=== PATIENT | male | born 1965 | race Caucasian/White ===

== ENCOUNTER 2022-05-05 19:03 | Emergency (ER) | payer OTHER, SELFPAY ==
[2022-05-05 19:07] VITALS: BP 121/80; PULSE 131; RESP 18; TEMP 36.8; O2SAT 94
--- NOTE | 2022-05-05 21:02 | PC.NURSE ---
Called once in triage, no answer.
--- NOTE | 2022-05-05 22:00 | PC.NURSE ---
Second call in triage, no answer.
== END 2022-05-05 22:25 | disposition left against medical advice (07) ==
LOC: ANHED 22:15
DX: R53.83 Other fatigue (principal)
CPT/HCPCS: 99199

== ENCOUNTER 2022-10-08 01:48 | Emergency (ER) | payer OTHER, SELFPAY ==
[2022-10-08] VITALS (31 sets, daily range): BP systolic 101–125; BP diastolic 64–90; PULSE 100–123; RESP 12–30; TEMP 36.5; O2SAT 84–100
--- NOTE | ~2022-10-08 | CT_ITS ---
EXAMINATION: CT brain wo con INDICATION: Head injury COMPARISON: None TECHNIQUE: Standard unenhanced head CT. The dose-length product (DLP) was 605.33 mGy-cm. The mA was a djusted according to patient size. Iterative reconstruction technique was employed. FINDINGS: There is no intracranial hemorrhage, acute infarction, or abnormal mass lesion. The ventric les are normal. There is no abnormal mass effect or midline shift. The jones-white matter differentiat ion is normal. The basal cisterns are patent. Intracranial calcified cerebral atherosclerosis is note d. The orbits are normal. There is mild mucosal thickening of the paranasal sinuses. IMPRESSION: 1. No acute intracranial abnormality. Reviewed, dictated and finalized at location A. WRESTLER
--- NOTE | ~2022-10-08 | XR_ITS ---
EXAMINATION: XR shoulder RT min 2V INDICATION: Right shoulder pain TECHNIQUE: Three views of the right shoulder are submitted. COMPARISON: None FINDINGS: Normal alignment. No acute fracture. There is moderate osteoarthritis of the acromioclavicu lar joint and mild osteoarthritis of the glenohumeral joint. There are healed right rib fractures. Sc lerosis at the superolateral margin of the humeral head could reflect prior Hill-Sachs fracture. Soft tissues are unremarkable. IMPRESSION: 1. No acute osseous abnormality. Reviewed, dictated and finalized at location A. OYMENT TECHNICIAN
--- NOTE | 2022-10-08 02:15 | ED.FALL ---
HPI - Fall General Chief Complaint: Fall Stated Complaint: GLF head and right shoulder pain Time Seen by Provider: 10/08/22 01:57 History of Present Illness HPI Narrative: 57-year-old male presenting to the emergency department for evaluation after having a fall from a stool. Patient states this evening he was standing on a stool trying to reach a food item from the cupboard when he fell and struck his head and injured his right shoulder. Patient suspects that his right shoulder was temporarily dislocated, he states this happens relatively often. Patient hit his head but had no loss of consciousness. Patient does have COPD as well as being on oxygen at nighttime. Patient denies any current worsening shortness of breath. Patient states for the last 2 months he has had approximately 18 pounds of unintentional weight loss and does have lower extremity pain that is worsened with ambulation over the last few months. Related Data Allergies Allergy/AdvReac Type Severity Reaction Status Date / Time No Known Allergies Allergy Verified 10/08/22 01:58 Review of Systems Review of Systems: CONSTITUTIONAL: Denies fever, chills, or sweats. EYES: Denies visual changes, redness, or discharge. ENT: Denies rhinorrhea, congestion, sore throat, or otalgia. CARDIOVASCULAR: Denies chest pain, palpitations, or edema. RESPIRATORY: Denies cough or dyspnea. GASTROINTESTINAL: Denies abdominal pain, nausea, vomiting, or diarrhea. GENITOURINARY: Denies dysuria or hematuria. SKIN: Denies rash or itching. MUSCULOSKELETAL: See HPI NEUROLOGIC: Denies headache, numbness, or weakness. Exam Narrative: APPEARANCE: Well appearing, no pain, no distress, well-nourished. HEAD: normocephalic, atraumatic. EYES: PERRLA/EOMI, conjunctivae clear. NOSE: Normal no drainage NECK: Supple. No adenopathy, no masses. RESPIRATORY: Airway patent, respirations nonlabored. Clear to auscultation bilaterally, no rales, rhonchi, wheezing. CARDIOVASCULAR: Regular rate and rhythm without murmurs rubs or gallops. ABDOMINAL: Soft, nontender, nondistended, normal bowel sounds MUSCULOSKELETAL: Moves all extremities. Strength/ROM intact, No edema, No calf tenderness. NEURO: Alert. Cranial nerves II through XII intact. SKIN: Warm, dry. Normal Color Course Course Emergency Course: Head CT was negative for acute intracranial abnormality. Shoulder x-ray showed no acute fracture or dislocation. Patient was afebrile with leukocytosis of 10.3. Patient's hemoglobin was stable. Patient's potassium is 2.9 this was replaced orally. Patient was encouraged [facility] patient was also provided medical follow-up with Dr. Helton Vital Signs Vital signs: Vital Signs Temperature 97.7 F 10/08/22 01:47 Pulse Rate 123 H 10/08/22 01:47 Respiratory Rate 18 10/08/22 01:47 Blood Pressure 125/86 10/08/22 01:47 Pulse Oximetry 85 L 10/08/22 01:47 Oxygen Delivery Room Air 10/08/22 01:47 Temperature 97.7 F 10/08/22 01:47 Pulse Rate 103 H 10/08/22 04:15 Respiratory Rate 16 10/08/22 06:00 Blood Pressure 107/64 10/08/22 05:46 Pulse Oximetry 96 10/08/22 06:15 Oxygen Delivery Nasal Cannula 10/08/22 03:10 Oxygen Flow Rate 2 10/08/22 03:10 MDM - Fall Lab Data Attestation: I reviewed the patient's lab results. Result diagrams: 10/08/22 02:23 10/08/22 02:23 Labs: Lab Results 10/08/22 10/08/22 Range/Units 02:23 02:23 WBC 10.3 H (4.5-10.0) K/mm3 RBC 3.79 L (4.6-6.20) M/mm3 Hgb 13.3 L (14.0-18.0) g/dL Hct 37.8 L (42.0-52.0) % MCV 99.7 (80-100) fl MCH 35.1 H (26-34) pg MCHC 35.2 (32-36) g/dl RDW 14.6 H (11.5-14.5) % Plt Count 237 (150-375) k/mm3 MPV 8.8 (7.4-10.4) fl Immature Gran % (Auto) 0.3 (0-0.5) % Neut % (Auto) 81.0 H (45.5-73.1) % Lymph % (Auto) 11.8 L (18.3-44.2) % [place] % (Auto) 6.0 (2.6-8.5) % Eos % (Auto) 0.2 (0-4.4) % Bas
[2022-10-08 02:31] LABS: Basophils Absolute Auto 0.1 K/mm3 (0.0-0.1); Basophils Percent Auto 0.7 % (0.2-1.2); Eosinophils Percent Auto 0.2 % (0-4.4); Hematocrit 37.8 % (42.0-52.0); Hemoglobin 13.3 g/dL (14.0-18.0); Immature Granulocyte Absolute 0.03 K/mm3 (0.00-0.031); Immature Granulocyte Percent A 0.3 % (0-0.5); Lymphocytes Absolute Auto 1.22 K/mm3 (0.9-3.2); Lymphocytes Percent Auto 11.8 % (18.3-44.2); Mean Corpuscular HGB Conc 35.2 g/dl (32-36); Mean Corpuscular Hemoglobin 35.1 pg (26-34); Mean Corpuscular Volume 99.7 fl (80-100); Mean Platelet Volume 8.8 fl (7.4-10.4); Monocytes Absolute Auto 0.6 K/mm3 (0.1-0.6); Neutrophils Absolute Auto 8.4 K/mm3 (1.3-6.7); Platelet Count Result 237 k/mm3 (150-375); Red Blood Count 3.79 M/mm3 (4.6-6.20); Red Cell Distribution Width 14.6 % (11.5-14.5); White Blood Count 10.3 K/mm3 (4.5-10.0)
[2022-10-08 02:41] LABS: Alanine Aminotransferase 29 U/L (6-50); Albumin Level 3.6 g/dL (3.5-5.1); Alkaline Phosphatase 210 U/L (38-126); Anion Gap 20 mmol/L (8-16); Aspartate Amino Transferase 64 U/L (17-59); Bilirubin,Total 1.1 mg/dL (0.2-1.3); Blood Urea Nitrogen 3 mg/dL (9-20); Calcium 7.9 mg/dL (8.4-10.2); Carbon Dioxide 28 mmol/L (22-30); Chloride 94 mmol/L (98-107); Creatine Kinase 40 U/L (55-170); Estimated Glomerular Filt Rate > 60; Glucose 106 mg/dL (65-110); Potassium 2.9 mmol/L (3.4-5.0); Sodium 142 mmol/L (137-145)
--- NOTE | 2022-10-08 03:11 | PC.NURSE ---
Patient O2 dropped down to 82% on RA. Placed patient on 2L via NC which is patients normal PM O2 setting.
--- NOTE | 2022-10-08 03:21 | PC.NURSE ---
Patient taken to CT via stretcher at this time..
[2022-10-08] MEDS: POTASSIUM CHLORIDE 20 MEQ PACKET (FOR LIQUID) 40 MEQ PO (06:21)
[2022-10-08] MEDS: HYDROcodone/acetaminophen (*CRX) 5-325 MG TABLET 1 TAB PO (06:30)
== END 2022-10-08 06:40 | disposition home or self-care (01) ==
PROVIDERS: Emergency Provider Emergency Medicine
DX: S09.90XA Unspecified injury of head, initial encounter (principal); S49.91XA Unspecified injury of right shoulder and upper arm, initial encounter; M79.605 Pain in left leg; M79.604 Pain in right leg; J44.9 Chronic obstructive pulmonary disease, unspecified; Z99.81 Dependence on supplemental oxygen; W08.XXXA Fall from other furniture, initial encounter
CPT/HCPCS: 36415; 70450; 73030; 80053; 82550; 85025; 99284; A9270

== ENCOUNTER 2022-10-13 07:44 | Emergency (ER) | payer OTHER, SELFPAY ==
[2022-10-13] VITALS (29 sets, daily range): BP systolic 67–120; BP diastolic 47–82; PULSE 102–154; RESP 14–25; O2SAT 65–99
--- NOTE | ~2022-10-13 | CT_ITS ---
EXAMINATION: CT brain wo con DATE: 10/13/2022 08:29 INDICATION: Head injury. TECHNIQUE: Computed tomography (CT) of the head was performed without intravenous contrast. The mA wa s adjusted according to patient size. Iterative reconstruction technique was employed. The dose-lengt h product was 605.33 mGy-cm. COMPARISON: Head CT 10/08/2022 FINDINGS: There is no intracranial hemorrhage, acute infarction, or abnormal intracranial mass lesion . The ventricles are normal in size. The orbits are normal. There is mild mucosal thickening in the p aranasal sinuses. The mastoid air cells are normal. There is a right lateral scalp laceration. IMPRESSION: 1. Normal brain. Reviewed, dictated and finalized at location A. LFISH SHUCKER IMPRESSION: 1. Normal brain.
--- NOTE | ~2022-10-13 | CT_ITS ---
EXAMINATION: CT cervical spine wo con DATE: 10/13/2022 08:30 INDICATION: Head injury. TECHNIQUE: Computed tomography (CT) of the cervical spine was performed without intravenous contrast. Automated exposure control and iterative reconstruction technique were employed. The dose-length pro duct was 185.98 mGy-cm. COMPARISON: None FINDINGS: There is mild emphysema. There is kyphosis of cervical spine. Vertebral body heights are no rmal. There is severely decreased disc height at C3-C4, C4-C5, and C6-C7 and mildly decreased disc he ight at C5-C6. The following disc levels are specifically discussed: C2-C3: There is mild bilateral uncovertebral joint osteoarthritis. There is severe right and mild lef t facet joint osteoarthritis. There is mild right neural foraminal stenosis. There is mild central ca nal stenosis. C3-C4: There is severe right and moderate left uncovertebral joint osteoarthritis. There is severe ri ght and mild left facet joint osteoarthritis. There is moderate right and mild left neural foraminal stenosis. There is mild central canal stenosis. C4-C5: There is severe bilateral uncovertebral joint osteoarthritis. There is moderate bilateral face t joint osteoarthritis. There is mild bilateral neural foraminal stenosis. There is mild central rula l stenosis. C5-C6: There is moderate right and mild left uncovertebral joint osteoarthritis. There is severe bila teral facet joint osteoarthritis. There is mild bilateral neural foraminal stenosis. There is mild ce ntral canal stenosis. C6-C7: There is severe bilateral uncovertebral joint osteoarthritis. There is mild right and moderate left facet joint osteoarthritis. There is mild right and moderate left neural foraminal stenosis. Th ere is mild central canal stenosis. C7-T1: There is no uncovertebral joint osteoarthritis. There is moderate bilateral facet joint osteoa rthritis. There is mild bilateral neural foraminal stenosis. There is no central canal stenosis. IMPRESSION: 1. No fracture. 2. Severe cervical spondylosis. Reviewed, dictated and finalized at location A. DEODORIZER SERVICER
--- NOTE | 2022-10-13 08:01 | ECG_ITS ---
Measurements Intervals [place] Rate: 127 P: 77 [place]: 121 QRS: -44 QRSD: 84 T: 72 QT: 340 QTc: 494 Interpretive Statements SINUS TACHYCARDIA DELAYED PRECORDIAL R/S TRANSITION LOW QRS VOLTAGE IN LIMB LEADS INFERIOR INFARCT, AGE INDETERMINATE BORDERLINE ST-T WAVE ABNORMALITY- HIGH LATERAL LEADS ABNORMAL ECG NO PREVIOUS ECG AVAILABLE FOR COMPARISON Electronically Signed On 10-13-2022 12:25:45 HOME [employer]ATION SERVICE CLEANER by Nitesh Plata D.O.
--- NOTE | 2022-10-13 08:01 | ED.GENADULT ---
HPI - General Adult General Chief complaint: Head Injury Stated complaint: GLF with head lac Time Seen by Provider: 10/13/22 07:56 History of Present Illness HPI narrative: 57-year-old male presenting to the emergency department for evaluation after having a fall and a subsequent head injury. Patient does admit to drinking alcohol yesterday. Patient is unsure of what caused the fall. Patient is unsure if he had loss of consciousness. EMS was called and dressing was applied. Bleeding was controlled upon arrival to the emergency department. Patient reports he did have a new granddaughter born and reports that he was drinking to celebrate. Related Data Allergies Allergy/AdvReac Type Severity Reaction Status Date / Time No Known Allergies Allergy Verified 10/08/22 01:58 Review of Systems Review of Systems: CONSTITUTIONAL: Denies fever, chills, or sweats. EYES: Denies visual changes, redness, or discharge. ENT: Denies rhinorrhea, congestion, sore throat, or otalgia. CARDIOVASCULAR: Denies chest pain, palpitations, or edema. RESPIRATORY: Denies cough or dyspnea. GASTROINTESTINAL: Denies abdominal pain, nausea, vomiting, or diarrhea. GENITOURINARY: Denies dysuria or hematuria. SKIN: Head injury, laceration, see HPI MUSCULOSKELETAL: Denies back pain, joint pain, or myalgia. NEUROLOGIC: Denies headache, numbness, or weakness. Exam Narrative: APPEARANCE: Well appearing, no pain, no distress, well-nourished. HEAD: normocephalic, scalp laceration. EYES: PERRLA/EOMI, conjunctivae clear. NOSE: Normal no drainage EARS:TMS clear with good light reflex. THROAT: Pharynx clear, no exudate. NECK: Supple. No adenopathy, no masses. RESPIRATORY: Airway patent, respirations nonlabored. Clear to auscultation bilaterally, no rales, rhonchi, wheezing. CARDIOVASCULAR: Regular rate and rhythm without murmurs rubs or gallops. ABDOMINAL: Soft, nontender, nondistended, normal bowel sounds MUSCULOSKELETAL: Moves all extremities. Strength/ROM intact, No edema, No calf tenderness. NEURO: Alert. Cranial nerves II through XII intact. Grossly intact SKIN: Scalp laceration Course Course Emergency Course: Patient declined admission for his hypokalemia. Patient potassium was replaced and rechecked. Patient's repeat potassium was 3.7. Patient blood pressure improved with rehydration. Patient was able to ambulate in the emergency department without issue. Patient denies any complaints at this time. Patient was encouraged of close follow-up with his primary care physician. Vital Signs Vital signs: Vital Signs Pulse Rate 154 H 10/13/22 07:48 Respiratory Rate 24 H 10/13/22 07:48 Oxygen Delivery Room Air 10/13/22 07:48 Pulse Rate 102 H 10/13/22 14:45 Respiratory Rate 16 10/13/22 14:45 Blood Pressure 109/47 L 10/13/22 14:45 Pulse Oximetry 99 10/13/22 14:45 Oxygen Delivery Room Air 10/13/22 07:48 Procedures Laceration Laceration 1: Site: scalp Side (If applicable): right Size (cm): 3 Description: linear Depth: simple, single layer Local Anesthetic: lidocaine 1% Amount of anesthesia used (mL): 5 Pre-repair: wound explored, irrigated and irrigated extensively ====== Skin Level ====== Skin layer closed with: nylon Size (cm): 3-0 Number of sutures: 5 Technique: simple, interrupted and other (4 simple and 1 figure 8) ====== Subcutaneous Layer ====== ====== Muscle Layer ====== ====== Tendon Layer ====== Medical Decision Making Vital Signs Vital Signs: Vital Signs Pulse Rate 154 H 10/13/22 07:48 Respiratory Rate 24 H 10/13/22 07:48 Oxygen Delivery Room Air 10/13/22 07:48 Pulse Rate 102 H 10/13/22 14:45 Respiratory Rate 16 10/13/22 14:45 Blood Pressure 109/47 L 10/13/22 14:45 Pulse Oximetry 99 10/13/22 14:45 Oxygen Delivery Room Air 10/13/22 07:48 Lab Data Lab results reviewed: Yes Saleem alan
[2022-10-13] MEDS: SODIUM CHLORIDE 0.9% IV 1,000 ML 999 ML IV CONT (08:05)
[2022-10-13 08:41] LABS: Basophils Absolute Auto 0.1 K/mm3 (0.0-0.1); Basophils Percent Auto 0.8 % (0.2-1.2); Eosinophils Absolute Auto 0.1 K/mm3 (0-0.3); Eosinophils Percent Auto 1.5 % (0-4.4); Hematocrit 34.5 % (42.0-52.0); Hemoglobin 11.5 g/dL (14.0-18.0); Immature Granulocyte Absolute 0.04 K/mm3 (0.00-0.031); Immature Granulocyte Percent A 0.4 % (0-0.5); Lymphocytes Absolute Auto 1.64 K/mm3 (0.9-3.2); Lymphocytes Percent Auto 17.7 % (18.3-44.2); Mean Corpuscular HGB Conc 33.3 g/dl (32-36); Mean Corpuscular Hemoglobin 34.8 pg (26-34); Mean Corpuscular Volume 104.5 fl (80-100); Mean Platelet Volume 9.4 fl (7.4-10.4); Monocytes Absolute Auto 0.6 K/mm3 (0.1-0.6); Monocytes Percent Auto 6.8 % (2.6-8.5); Neutrophils Absolute Auto 6.8 K/mm3 (1.3-6.7); Neutrophils Percent Auto 72.8 % (45.5-73.1); Platelet Count Result 132 k/mm3 (150-375); Red Cell Distribution Width 14.6 % (11.5-14.5); White Blood Count 9.3 K/mm3 (4.5-10.0)
[2022-10-13 09:20] LABS: Alanine Aminotransferase 56 U/L (6-50); Albumin Level 3.1 g/dL (3.5-5.1); Alkaline Phosphatase 171 U/L (38-126); Anion Gap 17 mmol/L (8-16); Aspartate Amino Transferase 275 U/L (17-59); Bilirubin,Total 1.1 mg/dL (0.2-1.3); Blood Urea Nitrogen 4 mg/dL (9-20); Calcium 7.3 mg/dL (8.4-10.2); Carbon Dioxide 26 mmol/L (22-30); Chloride 99 mmol/L (98-107); Estimated CRCL calculation 94 ml/min; Estimated Glomerular Filt Rate > 60; Glucose 153 mg/dL (65-110); Potassium 2.4 mmol/L (3.4-5.0); Sodium 142 mmol/L (137-145)
[2022-10-13] MEDS: POTASSIUM CHLORIDE 20 MEQ PACKET (FOR LIQUID) 40 MEQ PO (10:30)
[2022-10-13] MEDS: KCL 20 MEQ/SW 100 ML 100 ML 50 MEQ IVPB (10:30)
--- NOTE | 2022-10-13 10:30 | PC.NURSE ---
iv line reiniated. ns and kcl hung and infusing. pts family at bedside. provided with warm blankets for comfort.
[2022-10-13 10:31] LABS: Ethanol 265 mg/dL (<10)
[2022-10-13 14:23] LABS: Anion Gap 3 mmol/L (8-16); Blood Urea Nitrogen 4 mg/dL (9-20); Calcium 6.9 mg/dL (8.4-10.2); Carbon Dioxide 29 mmol/L (22-30); Chloride 101 mmol/L (98-107); Estimated CRCL calculation 135 ml/min; Estimated Glomerular Filt Rate > 60; Glucose 103 mg/dL (65-110); Potassium 3.7 mmol/L (3.4-5.0); Sodium 133 mmol/L (137-145)
== END 2022-10-13 14:45 | disposition home or self-care (01) ==
PROVIDERS: Emergency Provider Emergency Medicine
DX: S01.01XA Laceration without foreign body of scalp, initial encounter (principal); F10.129 Alcohol abuse with intoxication, unspecified; Y90.0 Blood alcohol level of less than 20 mg/100 ml; E87.6 Hypokalemia; W19.XXXA Unspecified fall, initial encounter
CPT/HCPCS: 12002; 36415; 70450; 72125; 80048; 80053; 80307; 85025; 93005; 96361; 96365; 96366; 99284; A9270; J3480; J7030

== ENCOUNTER 2023-03-13 14:28 | Inpatient (IN) | payer OTHER, SELFPAY ==
[2023-03-13] VITALS (24 sets, daily range): BP systolic 82–110; BP diastolic 63–84; PULSE 92–160; RESP 18–33; TEMP 36.6–37.3; O2SAT 86–100; BMI 18.2
--- NOTE | 2023-03-13 | ECG_ITS ---
Measurements Intervals [place] Rate: 145 P: 61 NC: 125 QRS: -53 QRSD: 74 T: 71 QT: 295 QTc: 459 Interpretive Statements DIFFICULT TO DISCERN RHYTHM. LIKELY SINUS TACHYCARDIA, POSSIBLE ATRIAL FLUTTER LOW QRS VOLTAGE IN EXTREMITY LEADS [QRS DEFLECTION < 0.5 mV IN LIMB LEADS] LEFT ANTERIOR FASCICULAR BLOCK [QRS AXIS <= -45, QR IN I, RS IN II] INFERIOR MYOCARDIAL INFARCTION , PROBABLY OLD [40+ ms Q WAVE AND/OR ST/T ABNORMALITY IN II/aVF] COMPARED TO ECG 03/13/2023 14:46:46 NO SIGNIFICANT CHANGES Electronically Signed On 03-15-2023 18:10:26 CDT by Bhavani Meraz M.D.
--- NOTE | ~2023-03-13 | XR_ITS ---
Portable chest x-ray Comparison: 03/14/2023 at 6:43 AM Clinical History: Tube placement Findings: Endotracheal tube and NG tube are in satisfactory positions. Lungs remain clear. Cardiome diastinal silhouette is stable. Right seventh rib fracture noted. Impression: Support tubes in place, as above. Clear lungs. Right seventh rib fracture. Reviewed, dictated and finalized at location . Impression: Support tubes in place, as above. Clear lungs. Right seventh rib fracture.
--- NOTE | ~2023-03-13 | XR_ITS ---
Portable chest x-ray Comparison: 03/14/2023 at 5:08 AM Clinical History: Tube placement Findings: Endotracheal tube and NG tube are in satisfactory positions. Lungs remain clear. Stable el evation left hemidiaphragm. Cardiomediastinal silhouette is stable. Bones and soft tissues are unrem arkable. Impression: Support tubes in place, as above. Clear lungs. Stable elevation left hemidiaphragm. Reviewed, dictated and finalized at location M. Impression: Support tubes in place, as above. Clear lungs. Stable elevation left hemidiaphragm.
--- NOTE | ~2023-03-13 | XR_ITS ---
XR chest 1V portable DATE: 03/13/2023 15:09 INDICATION: Dyspnea TECHNIQUE: Portable AP chest on March 13, 2023 at 1504 hours COMPARISON: January 18, 2017 portable AP chest FINDINGS: Chronic prominent elevation of the left leaf of the diaphragm. Heart size appears normal. There is mild aortic unfolding. No hilar or mediastinal enlargement. No pulmonary infiltrate or consolidation, pleural effusion or pulmonary vascular congestion or pneumo thorax is detected. Probable nipple shadow overlying the right lower lung; recommend repeat examination with nipple marke rs. Recent lateral right seventh nondisplaced rib fracture. There is osteopenia. IMPRESSION: Nodular density overlying right lower lung, possibly nipple shadow. Recommend repeat exam ination with nipple markers Recent lateral right seventh minimally displaced rib fracture Chronic elevation of left diaphragm Osteopenia Reviewed, dictated and finalized at location L. IMPRESSION: Nodular density overlying right lower lung, possibly nipple shadow. Recommend repeat examination with nipple markers Recent lateral right seventh minimally displaced rib fracture Chronic elevation of left diaphragm Osteopenia
--- NOTE | ~2023-03-13 | CT_ITS ---
EXAMINATION: CTA chest PE protocol DATE: 03/13/2023 19:06 CDT INDICATION: Shortness of breath. Dyspnea. TECHNIQUE: Computed tomographic angiography (CTA) of the chest was performed with 100 mL Omnipaque-35 0 intravenous contrast. The dose-length product was 266.29 mGy-cm. Maximum intensity projection 3D-re constructions of the aorta and other arteries were constructed by the technologist on a separate work station. COMPARISON: CT dated 01/18/2017 FINDINGS: There are filling defects in right upper lobe and right lower lobe segmental and subsegment al pulmonary arteries, consistent with pulmonary embolism. No large central pulmonary embolism. Heart size normal. No significant pleural or pericardial effusion. No thoracic lymphadenopathy. No endobro nchial lesion. No pneumothorax. There are groundglass opacities anteriorly in the right upper and mid dle lobes, most likely infectious/inflammatory. There are degenerative changes of the shoulders. Ther e is mild thoracic spondylosis. Diffuse fatty infiltration of the liver. No evidence for aortic aneur ysm or dissection. IMPRESSION: 1. Pulmonary embolism involving right upper and lower lobe segmental and subsegmental pulmonary arter ies, small thrombus burden. 2: Focal groundglass opacities right upper and middle lobes, most likely infectious/inflammatory. 3: Hepatic steatosis. Reviewed, dictated and finalized at location A. IMPRESSION: 1. Pulmonary embolism involving right upper and lower lobe segmental and subseg mental pulmonary arteries, small thrombus burden. 2: Focal groundglass opacities right upper and middle lobes, most likely infect ious/inflammatory. 3: Hepatic steatosis.
--- NOTE | ~2023-03-13 | CT_ITS ---
EXAMINATION: CT abdomen pelvis w con DATE: 03/13/2023 16:43 INDICATION: Elevated liver function tests TECHNIQUE: Computed tomography (CT) of the abdomen and pelvis was performed with 100 CC Omnipaque 350 intravenous contrast. Automated exposure control and iterative reconstruction technique were employe d. Exam dose: 359.63 mGy-cm total exam DLP. COMPARISON: None. FINDINGS: There are multiple right rib fractures including the anterior third, fourth, sixth, seventh and eight h ribs. These appear to be subacute, with some healing response. There is focal infiltrate in the ant erior aspect of the middle lobe subjacent to the anterior right third rib fracture suggesting focal p ulmonary contusion. There is minimal discoid atelectasis in the dependent right lower lobe. Normal heart size. No pericardial or pleural effusion. Coronary and thoracic aortic atherosclerosis. There is prominent diffuse hepatic steatosis. No hepatic space-occupying mass lesion is detected. The gallbladder is distended, without thickening of the wall or pericholecystic fluid or fat stranding. No bile duct or pancreatic duct dilatation is noted. Normal splenic size. Normal morphology of the adrenal glands. There are couple of very small right cortical renal cysts. The kidneys are otherwise unremarkable. No urinary tract calculus or hydroureteronephrosis. Mild diffuse bladder wall thickening, which may be due to moderate prostatomegaly. There is atherosclerotic calcification but normal caliber of the abdominal aorta and iliac and femora l arteries. No intraperitoneal or retroperitoneal or pelvic mass lesion or adenopathy or ascites is e vident. No bowel obstruction, bowel wall thickening, pneumatosis or intraperitoneal free air is detected. Bilateral L5 pars interarticularis defects. No suspicious osteolytic or osteoblastic lesions are note d. IMPRESSION: Multiple right subacute rib fractures and the probable underlying anterior middle lobe p ulmonary contusion Prominent diffuse hepatic steatosis Very small cortical renal cysts Prostatomegaly Bilateral L5 pars interarticularis defects without L5-S1 anterolisthesis Reviewed, dictated and finalized at [facility]. Reviewed, dictated and finalized at location L. IMPRESSION: Multiple right subacute rib fractures and the probable underlying anterior middle lobe pulmonary contusion Prominent diffuse hepatic steatosis Very small cortical renal cysts Prostatomegaly Bilateral L5 pars interarticularis defects without L5-S1 anterolisthesis
--- NOTE | ~2023-03-13 | XR_ITS ---
Portable chest x-ray Comparison: 03/13/2023 Clinical History: Shortness of breath Findings: Lungs are clear, without focal consolidation or pleural effusion. Stable elevation of left hemidiaphragm. Cardiomediastinal silhouette is stable. Minimally displaced fracture at the right se venth rib, somewhat less well seen on prior exam. Impression: Clear lungs. Stable elevation of left hemidiaphragm. Right seventh rib fracture. Reviewed, dictated and finalized at [facility]. Impression: Clear lungs. Stable elevation of left hemidiaphragm. Right seventh rib fracture.
--- NOTE | ~2023-03-13 | US_ITS ---
EXAMINATION: US arterial ankle brachial ind DATE: 03/14/2023 13:28 INDICATION: Poor circulation. TECHNIQUE: Segmental pressures and plethysmographic and Doppler waveforms of the brachial and lower e xtremity arteries were obtained. COMPARISON: None. FINDINGS: Right and left brachial artery pressures of 92 mm Hg and 82 mm Hg, respectively, are concordant (norm al difference <= 30 mmHg). The right ankle-brachial index (STEFFI) is 1.07 (normal >= 0.9-1.0). The right great toe-brachial index (TBI) is 0.34 (normal >= 0.65). Arterial Doppler waveforms demonstrate brisk systolic upstrokes at nini th right posterior tibial and dorsalis pedis arteries. The left STEFFI is 0.98. The left TBI is 0.42. Arterial Doppler waveforms demonstrate brisk systolic ups trokes at both left posterior tibial and dorsalis pedis arteries. IMPRESSION: 1. Arterial occlusive disease to the bilateral lower limbs with mildly decreased left and moderately decreased right toe brachial indices. Reviewed, dictated and finalized at location A. IMPRESSION: 1. Arterial occlusive disease to the bilateral lower limbs with mildly decrease d left and moderately decreased right toe brachial indices.
--- NOTE | ~2023-03-13 | US_ITS ---
Limited Abdominal Sonogram: Real-time sonographic imaging of the right upper quadrant was performed. Clinical History: Abnormal LFTs Findings: The liver appears echogenic, with no evidence of mass lesion or bile duct dilatation. Main portal vein demonstrates normal direction of flow. The gallbladder is partially distended, and appea rs normal with no evidence of gallstone or wall thickening. The common bile duct measures 4 mm. The visualized pancreas, aorta, and IVC are unremarkable. Impression: Diffuse fatty infiltration of the liver. Reviewed, dictated and finalized at location M. Impression: Diffuse fatty infiltration of the liver.
--- NOTE | ~2023-03-13 | US_ITS ---
EXAMINATION: US venous doppler [facility] DATE: 03/14/2023 10:50 INDICATION: Coronary embolism TECHNIQUE: Grayscale ultrasound images without and with compression and Doppler ultrasound images of the bilateral lower extremity veins were obtained. COMPARISON: None. FINDINGS: The visualized portions of right common femoral vein, profunda (deep) femoral vein, femoral vein, pop liteal vein, posterior tibial veins, peroneal veins, gastrocnemius vein and greater saphenous vein ou tflow are patent. The visualized portions of femoral vein, popliteal vein, posterior tibial veins, peroneal veins and g astrocnemius vein are patent. The region of the left common femoral vein, profunda femoral vein and g reater saphenous vein outflow is unable to be visualized due to lines and bandaging material at the l eft groin. IMPRESSION: 1. No deep venous thrombosis in either lower limb. The region of the left groin surrounding the visu alized due to bandaging material. Reviewed, dictated and finalized at location A. IMPRESSION: 1. No deep venous thrombosis in either lower limb. The region of the left groi n surrounding the visualized due to bandaging material.
--- NOTE | 2023-03-13 14:41 | ECG_ITS ---
Measurements Intervals [place] Rate: 152 P: [place]: 0 QRS: -35 QRSD: 75 T: 56 QT: 293 QTc: 466 Interpretive Statements DIFFICULT TO DISCERN RHYTHM - LIKELY SINUS TACHYCARIDA, POSSIBLE ECTOPIC ATRIAL TACHYCARDIA LOW QRS VOLTAGE IN EXTREMITY LEADS [QRS DEFLECTION < 0.5 mV IN LIMB LEADS] INFERIOR MYOCARDIAL INFARCTION , PROBABLY OLD [40+ ms Q WAVE AND/OR ST/T ABNORMALITY IN II/aVF] COMPARED TO ECG 10/13/2022 09:32:43 HEART RATE IS NOW FASTER Electronically Signed On 03-13-2023 18:06:59 CDT by Bhavani Meraz M.D.
--- NOTE | 2023-03-13 14:54 | ED.SOB ---
HPI - SOB/Dyspnea General Chief Complaint: Shortness of Breath/Dyspnea Stated Complaint: SOB Time Seen by Provider: 03/13/23 14:49 History of Present Illness HPI Narrative: Pt presents with SOB worsening over the last several days and weakness in his legs and aches in his thighs. Pt says he had recent blood work and CT of abdomen from [place] and everything was fine. Pt denies CP or fever. Related Data Allergies Allergy/AdvReac Type Severity Reaction Status Date / Time No Known Allergies Allergy Verified 10/08/22 01:58 Review of Systems Review of Systems: All systems reviewed & are unremarkable except as noted in HPI and below Exam Const: Nutritional Appearance: thin Orientation/consciousness: patient oriented x3 Limitations: no limitations HENMT: Mouth: Yes Normal oral and palatal mucosa present Eyes: Conjunctivae: conjunctival abnormality (jaundiced) EOM: EOMs intact bilaterally Neck: Neck: normal visual inspection Chest: Chest palpation & inspection: normal inspection of the chest Resp: Effort & Inspection: labored Auscultation: wheezes Cardio: Rate: tachycardic Rhythm: abnormal rhythm irregularly irregular GI: GI Palp: Yes Soft to palpation Auscultation: normal bowel sounds Skin: Rashes: no rashes Wounds: no wounds Neuro: General: patient oriented x3, moves all extremities, no meningeal signs, no focal motor deficits and CN's II-XI intact bilaterally Cranial nerves: Yes Nystagmus not present Speech: normal speech Extrem: General: normal to inspection and no clubbing, cyanosis or edema Psych: Mental Status: mental status grossly normal Affect: normal affect Attitude: cooperative Course Vital Signs Vital signs: Vital Signs Temperature 98.2 F 03/13/23 14:29 Pulse Rate 157 H 03/13/23 14:29 Respiratory Rate 22 H 03/13/23 14:29 Blood Pressure 94/82 L 03/13/23 14:29 Pulse Oximetry 93 03/13/23 14:29 Oxygen Delivery Nasal Cannula 03/13/23 14:29 Oxygen Flow Rate 4 03/13/23 14:29 Temperature 98.2 F 03/13/23 14:29 Pulse Rate 134 H 03/13/23 18:04 Respiratory Rate 22 H 03/13/23 17:47 Blood Pressure 99/74 L 03/13/23 18:04 Pulse Oximetry 98 03/13/23 17:47 Oxygen Delivery Nasal Cannula 03/13/23 15:35 Oxygen Flow Rate 4 03/13/23 15:35 MDM - SOB/Dyspnea MDM Narrative Medical decision making narrative: 57 y/o male presents with SOB and weakness to legs and leg aches for several days. Pt has mild hypotension and a fib with rvr on ekg, pt had two nebs in route per EMS. Will try 500 cc bolus of fluids and see what HR does before giving any antiarrythmics and check cardiac and spsis labs. Pt in a fib with rvr and hypokaemic, IVF did not change HR much, treated potassium of 2.8 and gave another 1l bolus of fluids with neg cxr and gave bolus of cardizem 10mg. discussed with [facility] and asked to give bolus and get CT abd and pelvis and call her back for placement. CT nothing acute, still in a fib/flutter with rvr, not responding to fluids or cardizem. will try amiodarone bolus and admit to IMU. Lab Data 03/13/23 15:00 03/13/23 15:00 Labs: Lab Results 03/13/23 03/13/23 03/13/23 Range/Units 15:00 15:00 15:00 WBC 5.7 (4.5-10.0) K/mm3 RBC 2.95 L (4.6-6.20) M/mm3 Hgb 10.9 L (14.0-18.0) g/dL Hct 29.8 L (42.0-52.0) % MCV 101.0 H (80-100) fl MCH 36.9 H (26-34) pg MCHC 36.6 H (32-36) g/dl RDW 18.8 H (11.5-14.5) % Plt Count 209 D (150-375) k/mm3 MPV 11.2 H (7.4-10.4) fl Immature Gran % (Auto) 0.4 (0-0.5) % Neut % (Auto) 74.7 H (45.5-73.1) % Lymph % (Auto) 19.2 (18.3-44.2) % [place] % (Auto) 4.6 (2.6-8.5) % Eos % (Auto) 0.4 (0-4.4) % Baso % (Auto) 0.7 (0.2-1.2) % Lymph # (Auto) 1.09 (0.9-3.2) K/mm3 [place] # (Auto) 0.3 (0.1-0.6) K/mm3 Eos # (Auto) 0.0 (0-0.3) K/mm3 Baso # (Auto) 0.0 (0.0-0.1) K/mm3 Abs Immat Gran (auto) 0.02 (0.00-0.031) K/mm3
[2023-03-13] MEDS: SODIUM CHLORIDE 0.9% IV 500 ML 999 ML IV CONT ×2 (14:57→15:50)
[2023-03-13 15:16] LABS: Basophils Percent Auto 0.7 % (0.2-1.2); Eosinophils Percent Auto 0.4 % (0-4.4); Hematocrit 29.8 % (42.0-52.0); Hemoglobin 10.9 g/dL (14.0-18.0); Immature Granulocyte Absolute 0.02 K/mm3 (0.00-0.031); Immature Granulocyte Percent A 0.4 % (0-0.5); Lymphocytes Absolute Auto 1.09 K/mm3 (0.9-3.2); Lymphocytes Percent Auto 19.2 % (18.3-44.2); Mean Corpuscular HGB Conc 36.6 g/dl (32-36); Mean Corpuscular Hemoglobin 36.9 pg (26-34); Mean Platelet Volume 11.2 fl (7.4-10.4); Monocytes Absolute Auto 0.3 K/mm3 (0.1-0.6); Monocytes Percent Auto 4.6 % (2.6-8.5); Neutrophils Absolute Auto 4.2 K/mm3 (1.3-6.7); Neutrophils Percent Auto 74.7 % (45.5-73.1); Platelet Count Result 209 k/mm3 (150-375); Red Blood Count 2.95 M/mm3 (4.6-6.20); Red Cell Distribution Width 18.8 % (11.5-14.5); White Blood Count 5.7 K/mm3 (4.5-10.0)
[2023-03-13 15:20] LABS: Alveolar/Arterial O2 Gradient 148.6 mmHg; Base Excess ABG 2.7 mEq/l (+/-2.0); Fractional Inspired Oxygen 36 %; HCO3 ABG 23.2 mEq/l (22.0-26.0); Methemoglobin ABG 0.3 %THb (0-1.5); Oxygen Content ABG 14.3 %vol (16.0-22.0); Oxygen Saturation ABG 97.6 % (95.0-100.0); Oxyhemoglobin 93.5 % THb (90.0-100.0); PCO2 ABG 23.9 mmHg (35.0-45.0); PO2 ABG 80.4 mmHg (80.0-100.0); PO2 FiO2 Ratio Arterial Blood 2.23 %; Reduced Hemoglobin 4.2 %THb (0-5.0); Total Hemoglobin 10.8 g/dL (12.0-18.0)
[2023-03-13 15:23] LABS: Device NASAL CANNULA; Modified Allen's Test Pass; Site Drawn LEFT RADIAL; pH ABG 7.605 (7.350-7.450)
[2023-03-13] MEDS: LEVALBUTEROL NEB 1.25 MG/3 ML INHALATION (15:25)
[2023-03-13 15:30] LABS: Alanine Aminotransferase 49 U/L (6-50); Albumin Level 2.6 g/dL (3.5-5.1); Alkaline Phosphatase 616 U/L (38-126); Anion Gap 10 mmol/L (8-16); Aspartate Amino Transferase 146 U/L (17-59); Blood Urea Nitrogen 4 mg/dL (9-20); Calcium 7.3 mg/dL (8.4-10.2); Carbon Dioxide 31 mmol/L (22-30); Chloride 87 mmol/L (98-107); Estimated CRCL calculation 141 ml/min; Estimated Glomerular Filt Rate > 60; Glucose 120 mg/dL (65-110); Lactic Acid Reflex 6.6 mmol/L (0.7-2.0); Potassium 2.8 mmol/L (3.4-5.0); Sodium 128 mmol/L (137-145)
[2023-03-13 15:36] LABS: NT Pro B Type Natriuretic Pept 68 pg/mL (19.9-100); Troponin I < 0.012 ng/mL (0.000-0.034)
[2023-03-13 15:38] LABS: INR 1.3; Prothrombin Time 15.9 Seconds (11.1-14.7)
[2023-03-13 15:39] LABS: Partial Thromboplastin Time 37.1 SECONDS (22.3-36.8)
[2023-03-13] MEDS: dilTIAZem HCl INJ 25 MG/5 ML VIAL 10 MG IV PUSH (15:49)
[2023-03-13 15:53] LABS: Magnesium 1.4 mg/dL (1.6-2.3)
[2023-03-13] MEDS: POTASSIUM CHLORIDE 20 MEQ TABLET.ER 40 MEQ PO (15:59)
[2023-03-13] MEDS: KCL 20 MEQ/SW 100 ML 100 ML 50 MEQ IVPB (16:15)
[2023-03-13] MEDS: SODIUM CHLORIDE 0.9% IV 250 ML 125 ML (16:15)
[2023-03-13] MEDS: SODIUM CHLORIDE 0.9% IV 1,000 ML 999 ML IV CONT ×2 (16:47→21:20)
[2023-03-13] MEDS: AMIODARONE 150 MG/D5W 100 ML 150 MG/100 ML BAG 600 MG IV CONT (17:49)
[2023-03-13] MEDS: AMIODARONE 360 MG/D5W 200 ML 360 MG/200 ML BAG 33.33 MG IV CONT (18:04)
[2023-03-13 18:05] LABS: Immature Reticulocyte Fraction 28.9 % (3.0-15.9); Reticulocyte Hemoglobin Conten 41.1 pg (28.2-35.7); Reticulocyte Percent 3.96 % (0.7-4.3)
[2023-03-13 18:13] LABS: Reflex Lactic Acid Yes or No Add Lactic
[2023-03-13 18:18] LABS: Lactate Dehydrogenase 183 U/L (120-246)
[2023-03-13 18:19] LABS: INR 1.7; Prothrombin Time 19.1 Seconds (11.1-14.7)
[2023-03-13 18:20] LABS: Partial Thromboplastin Time 42.1 SECONDS (22.3-36.8)
[2023-03-13 18:32] LABS: Lactic Acid Reflex 10.2 mmol/L (0.7-2.0)
[2023-03-13 18:44] LABS: Troponin I < 0.012 ng/mL (0.000-0.034)
[2023-03-13 19:05] LABS: Hepatitis B Surface Antigen Negative (Negative)
[2023-03-13 19:11] LABS: HAV RESULT Negative (Negative); Hepatitis B Core IgM Result Negative (Negative)
[2023-03-13] MEDS: cefTRIAXone 2 GM/NS 100 ML 2 GM/100 ML BAG IVPB (19:20)
[2023-03-13 19:23] LABS: Hepatitis C Virus Antibody Negative (Negative)
[2023-03-13 19:26] LABS: Folic Acid 3.1 ng/mL (2.76->20); Vitamin B12 > 1000.0 pg/mL (239-931)
[2023-03-13 19:49] LABS: Lactic Acid 11.8 mmol/L (0.7-2.0)
--- NOTE | 2023-03-13 20:00 | PM.IMHP ---
H&P: HPI History of Present Illness Date/Time: 03/13/23 20:00 Chief Complaint: Weakness and shortness of breath. Narrative: This is a 57-year-old male smoker with history of daily alcohol use, COPD, and arthritis who presented to the emergency department via EMS from home for evaluation of shortness of breath and weakness. Patient provides the following history. He reports a 15 to 18 lb weight loss over the last 6 to 8 months unintentionally which she blames on poor eating habits however with further questioning it sounds as though he just does not have much of an appetite whatsoever. He has gotten increasingly weak and less mobile and he has diffuse muscle atrophy in the lower legs on exam today. In the last several days he has started to have increasing pain in the legs, most notably cramping discomfort in the thighs. He has also felt short of breath and today he started to have sensations of racing heart. On arrival to the emergency department he was found to be in a sinus or atrial tachycardia with rates in the 150s. His blood pressures were soft and he was hydrated without much improvement. There were concerns that he may be in atrial fibrillation/flutter and he was bolused with amiodarone and he is now in a sinus rhythm. Chest CTA showed pulmonary embolism involving the right upper and lower lobe segmental and subsegmental pulmonary arteries with a small thrombus burden and focal ground-glass opacity in right upper and middle lobes which is likely related to infection or inflammation. Labs were significant for a mild macrocytic anemia, sodium 128, potassium 2.8, magnesium 1.4, lactic acid 6.6, total bilirubin 6.0, AST 146, ALT 49, alkaline phosphatase 616. His troponins have all been normal and proBNP was only 68. Despite IV fluid hydration his lactic acid level has continued to climb. He has since been started on empiric antibiotics for possible pneumonia. He is also on heparin drip for the pulmonary emboli. Review of Systems Review of Systems: Twelve systems were reviewed. No fever, chills, or sweats. He denies headache and neck ache. He has a chronic smoker's cough in the morning which is unchanged. No sinus congestion or sore throat. He denies sick contacts. No chest pain. He denies orthopnea, PND, and lower extremity edema. Appetite has been poor. He denies vomiting. No diarrhea. No dysuria or change in urine output. He denies focal weakness and paresthesias. No facial droop or difficulty speaking or swallowing. No vertigo. No auditory visual changes. He has frequent falls as of late but likely has not sustained any obvious injuries however he does have evidence of a right rib fracture today. He denies head trauma and loss of consciousness. He denies signs and symptoms of alcohol withdrawal. No history of alcohol withdrawal symptoms. He has not noticed any lower extremity edema but did have some in November but that improved after drinking dandelion root tea. He has not noticed any bright red blood or dark stools. Except as documented, all other systems were reviewed and are negative. [facility] Past Medical History Medical History Alcohol abuse, daily use Hepatic steatosis Tobacco dependence Surgical History Surgical History History of open reduction and internal fixation (ORIF) procedure Repair right 3rd finger fracture. Family History Family History Other Family history non-contributory Social History Social History (Updated 03/15/23 @ 00:08 by Halle Ochoa PA-C) Social History: Surrogate medical decision maker: Marcy Reyes, spouse. Code status: Full code. Smoking packs per day: 1 Smoking cigarettes per day: 20.0 Years smoked: 20 Smoking pack-years: 20.00 Smoking status: Current every day smoker Alcohol intake: current Drinks per
[2023-03-13] MEDS: HEPARIN SODIUM 5,000 UNITS/ML VIAL 4500 UNITS IV PUSH (20:13)
[2023-03-13] MEDS: HEPARIN SOD/D5W 100 UNITS/ML 25,000 UNITS/250 ML BAG 11 UNITS IV CONT (20:15)
--- NOTE | 2023-03-13 21:01 | ADMGEN ---
This patient, Edmond Reyes, was admitted to Intensive Care Unit-5. Patient/family oriented to hospital policies and general routines including ID bracelet, bed and alarms, visiting hours, pain management, procedures, bathroom and other care routines, personal items, smoking policy, room service/diet, and visiting hours. Information on how to activate the Rapid Response Team has been discussed. Patient/Family are encouraged to report perceived risks to care and to ask questions if they do not understand what they are told or what they should do.
[2023-03-13] MEDS: MAGNESIUM SULFATE 3GM/D5W100ML 3 GM/100 ML BAG IVPB (21:20)
[2023-03-13] MEDS: DOXYCYCLINE 100 MG/NS 100 ML 100 MG/100 ML BAG IVPB (21:26)
[2023-03-13 22:48] LABS: Appearance Urine Clear (Clear); Bacteria Urine None Seen /hpf; Bilirubin Urine 3+ (Negative); Blood Urine Negative (Negative); Color Urine Dark Yellow (Yellow); Glucose Urine UA Negative (Negative); Ketones Urine Trace mg/dL (Negative); Leukocyte Esterase Ur Negative LEU/UL (Negative); Need Manual Microscopic Reviewed; Nitrate Urine Negative (Negative); Non Pathogenic Casts 0-2; Protein Urine Trace mg/dL (Negative); RBC Urine 0-2 /hpf (0-2); Squamous Epithelial Cell Urine None seen /hpf (Few); WBC Urine 0-5 /hpf
[2023-03-13 22:54] LABS: Specific Grav Ur 1.086 (1.001-1.035)
[2023-03-13 23:11] LABS: Add Urine Microscopic? NO
[2023-03-13 23:13] LABS: Anion Gap 14 mmol/L (8-16); Blood Urea Nitrogen 3 mg/dL (9-20); Calcium 6.9 mg/dL (8.4-10.2); Carbon Dioxide 22 mmol/L (22-30); Chloride 94 mmol/L (98-107); Creatine Kinase 60 U/L (55-170); Estimated CRCL calculation 127 ml/min; Estimated Glomerular Filt Rate > 60; Glucose 233 mg/dL (65-110); Magnesium 2.6 mg/dL (1.6-2.3); Potassium 3.5 mmol/L (3.4-5.0); Sodium 130 mmol/L (137-145)
[2023-03-13] MEDS: THIAMINE HCL 200 MG/2 ML VIAL 100 MG IV PUSH (23:19)
[2023-03-13 23:25] LABS: Troponin I < 0.012 ng/mL (0.000-0.034)
[2023-03-13 23:34] LABS: Glucose Point of Care 219 mg/dl (65-105)
[2023-03-14] VITALS (38 sets, daily range): BP systolic 82–147; BP diastolic 52–111; PULSE 98–144; RESP 16–39; TEMP 35.2–37.3; O2SAT 96–100; BMI 18.6
[2023-03-14] LABS: Acetaminophen < 10 ug/mL (10-30); Salicylate < 1.0 mg/dL (2-20)
[2023-03-14 00:03] LABS: Amphetamine Screen Urine Negative (Negative); Barbiturate Screen Urine Negative (Negative); Benzodiazepines Screen Urine Negative (Negative); Cannabinoid Screen Urine Negative (Negative); Cocaine Screen Urine Negative (Negative); Methadone Screen Urine Negative (Negative); Opiate Screen Urine Negative (Negative); Phencyclidine Screen Urine Negative (Negative)
[2023-03-14] MEDS: SODIUM CHLORIDE 0.9% IV 1,000 ML 100 ML IV CONT ×2 (02:29→09:50)
[2023-03-14 03:41] LABS: Hemoglobin 7.8 g/dL (14.0-18.0); Mean Corpuscular HGB Conc 33.9 g/dl (32-36); Mean Corpuscular Hemoglobin 36.3 pg (26-34); Mean Platelet Volume 11.2 fl (7.4-10.4); Platelet Count Result 227 k/mm3 (150-375); Red Blood Count 2.15 M/mm3 (4.6-6.20); Red Cell Distribution Width 20.2 % (11.5-14.5); White Blood Count 7.8 K/mm3 (4.5-10.0)
[2023-03-14 03:55] LABS: Partial Thromboplastin Time 150.4 SECONDS (22.3-36.8)
[2023-03-14 03:59] LABS: Lactic Acid Reflex 5.9 mmol/L (0.7-2.0)
[2023-03-14 04:04] LABS: Alanine Aminotransferase 58 U/L (6-50); Albumin Level 2.1 g/dL (3.5-5.1); Alkaline Phosphatase 423 U/L (38-126); Anion Gap 9 mmol/L (8-16); Aspartate Amino Transferase 105 U/L (17-59); Bilirubin,Total 4.8 mg/dL (0.2-1.3); Blood Urea Nitrogen 5 mg/dL (9-20); Calcium 6.2 mg/dL (8.4-10.2); Carbon Dioxide 24 mmol/L (22-30); Chloride 97 mmol/L (98-107); Estimated CRCL calculation 162 ml/min; Estimated Glomerular Filt Rate > 60; Glucose 218 mg/dL (65-110); Magnesium 2.1 mg/dL (1.6-2.3); Potassium 4.9 mmol/L (3.4-5.0); Sodium 130 mmol/L (137-145)
[2023-03-14 04:21] LABS: Band Neutrophils Percent 3 % (0-6); Lymphocytes Absolute Manual 0.23 K/mm3 (1.1-4.5); Macrocytosis 2+ (NORMAL); Monocytes Absolute Manual 0.07 K/mm3 (0.1-0.90); Monocytes Percent Manual 1 % (3-9); Neutrophils Absolute Manual 7.48 K/mm3 (1.3-6.7); Neutrophils Percent Manual 93 % (46-73); Platelet Estimate Adequate (Adequate); Schistocytes None Seen (NORMAL); Target Cells 2+ (NORMAL); Total Cells Counted 100
[2023-03-14 04:22] LABS: Burr Cells 1+ (NORMAL)
[2023-03-14 04:32] LABS: Iron 49 ug/dL (49-181)
[2023-03-14 04:39] LABS: Alveolar/Arterial O2 Gradient 86.3 mmHg; Base Excess ABG -0.8 mEq/l (+/-2.0); Carboxyhemoglobin 0.2 % THb (0-2.0); Fractional Inspired Oxygen 28 %; HCO3 ABG 20.9 mEq/l (22.0-26.0); Methemoglobin ABG 0.6 %THb (0-1.5); Oxygen Content ABG 10.3 %vol (16.0-22.0); Oxygen Saturation ABG 97.6 % (95.0-100.0); Oxyhemoglobin 94.6 % THb (90.0-100.0); PCO2 ABG 24.1 mmHg (35.0-45.0); PO2 ABG 84.9 mmHg (80.0-100.0); PO2 FiO2 Ratio Arterial Blood 3.03 %; Reduced Hemoglobin 4.6 %THb (0-5.0)
[2023-03-14 04:41] LABS: pH ABG 7.557 (7.350-7.450)
[2023-03-14 04:42] LABS: Percent Iron Saturation 52 % (20-50)
[2023-03-14 04:43] LABS: Device NASAL CANNULA; Site Drawn RIGHT BRACHIAL; Total Hemoglobin 7.6 g/dL (12.0-18.0)
[2023-03-14] MEDS: AMIODARONE 150 MG/D5W 100 ML 150 MG/100 ML BAG 600 MG IV CONT (05:10)
[2023-03-14] MEDS: AMIODARONE 360 MG/D5W 200 ML 360 MG/200 ML BAG 33.33 MG IV CONT (05:11)
[2023-03-14] MEDS: ALBUTEROL SULFATE NEB 2.5 MG/3 ML INH (05:26)
[2023-03-14] MEDS: FUROSEMIDE INJ 40 MG/4 ML VIAL IV PUSH (06:13)
[2023-03-14] MEDS: ETOMIDATE 20 MG/10 ML AMPUL IV PUSH (06:31)
[2023-03-14] MEDS: ROCURONIUM BROMIDE 50 MG/5 ML VIAL 100 MG IV PUSH (06:31)
--- NOTE | 2023-03-14 06:32 | PM.IMPN ---
Progress Note: A&P Assessment and Plan (1) Respiratory failure: Code(s): J96.90 - Respiratory failure, unspecified, unspecified whether with hypoxia or hypercapnia Status: Acute Assessment and Plan: patient with continued and progressive respiratory failure with tachypnea and shortness of breath, intubated successfully by er physician -icu doctor on case, will defer for ventilator management -monitor abg -will need thrombolysis -unavailable here?- transfer to higher level care (2) Atrial fibrillation with rapid ventricular response: Code(s): I48.91 - Unspecified atrial fibrillation Status: Acute Assessment and Plan: patient with new diagnosis of atrial fibrillation, initially given diltiazem and supposedly converted to sinus rhythm, now tachycardic again, started on amiodarone drip due to initially soft blood pressures -likely due to underlying pulmonary embolism- question rv strain? -will need echo to evaluate lv function and check for thrombus -patient empirically starte don heparin drip- will need full thrombolysis- defer to icu physician (3) Pulmonary embolism: Code(s): I26.99 - Other pulmonary embolism without acute cor pulmonale Status: Acute Assessment and Plan: patient wiht new diagnosis of pulmonary embolism, unknown source and cause- no leg swelling -per has had dramatic drop in weight these past few weeks- concern for underlying malignancy? -patient now intubated, will need thrombolysis - continue ventilatory support Plan -monitor abg -?transfer to facility with thrombolysis? -discussed with -prognosis guarded Subjective Date/time seen: 03/14/23 06:32 Review of Systems Review of Systems: called to icu for patient supposedly having a seizure. as per nurse, patient was found to be having involuntary movements for about15 seconds. by the time i arrived in icu patient was awake, alert, answering questions, no focal deficits. patient was complaining of shortness of breath and was initially on nasal cannula, switched to bipap. patient also tachycardic to 120's, atrial fibrillation?. patient earlier was in rapis atrial fibrillation, given dilatiazem and supposedly converted to sinus rhythm. patient admitted for pulmonary embolism and rapid atrial fibrillation and was placed on heparin drip and amiodarone drip. patient in cintinued respiratory distress and so a decision was made to intubate patient. er physician successfully intubated patient. initially by bedside. Exam Narrative: General- awake, alert, appears in distress, tachypneic, answering questions and following commands, no focal deficits HEENT- gonzales, no discharge chest- coarse breath sounds, no wheezes heard heart- tachycardic, ?atrial fibrillation? abdomen- soft, no tenderness or rebound extremitries- spider angiomata, cachectic, no edema, no swelling Objective Data Vital Signs Vital Signs: Vital Signs - 24 hr 03/13/23 14:29 03/13/23 14:30 03/13/23 14:40 Temperature 98.2 F Pulse Rate 157 H Pulse Rate [Bilateral Pedal (Dorsalis Pedis) Palpation] Respiratory Rate 22 H Blood Pressure 94/82 L Pulse Oximetry 93 86 L 90 Oxygen Delivery Nasal Cannula Room Air Nasal Cannula Oxygen Flow Rate 4 2 Fraction of Inspired Oxygen 03/13/23 14:42 03/13/23 15:26 03/13/23 15:32 Temperature Pulse Rate 154 H 148 H Pulse Rate [Bilateral Pedal (Dorsalis Pedis) Palpation] Respiratory Rate 18 28 H Blood Pressure Pulse Oximetry 94 Oxygen Delivery Nasal Cannula Oxygen Flow Rate 4 Fraction of Inspired Oxygen 03/13/23 15:35 03/13/23 15:35 03/13/23 15:16 Temperature Pulse Rate 147 H 151 H Pulse Rate [Bilateral Pedal (Dorsalis Pedis) Palpation] Respiratory Rate 28 H Blood Pressure 95/66 L Pulse Oximetry 94 98 Oxygen Delivery Nasal Cannula Oxygen Flow Rate 4 Fraction of Inspired Oxygen 03/13/23 15:30 03/13/23 15:45 03/13/23 17:49 Temperatur
[2023-03-14 06:39] LABS: Reflex Lactic Acid Yes or No Add Lactic
[2023-03-14] MEDS: PROPOFOL IV EMULSION 100 ML 3.23 MG IV CONT (06:47)
[2023-03-14] MEDS: FENTANYL 2,500MCG/NS250ML(*CRX 2,500 MCG/250 ML BAG IV CONT (06:48)
[2023-03-14 06:49] LABS: Triglycerides 94 mg/dL (<150)
--- NOTE | 2023-03-14 07:03 | ED.PROCEDURE ---
Procedures Intubation Intubation Time: 07:03 Consent: Emergent Sedative: etomidate (20mg) Paralytic: rocuronium (100) Laryngoscope: fiber optic video scope ET tube size: cuffed Tube secured depth (cm): 25 Tube secured location: lips Tube placement confirmation: visualized tube passing through cords, equal breath sounds bilaterally and confirmation by capnometry Patient tolerated procedure: well and no complications Additional comments: Patient in respiratory distress, type I respiratory failure
--- NOTE | 2023-03-14 07:30 | P.PCNBED_ITS ---
Procedures Intubation Intubation Date: 03/14/23 Intubation Time: 07:18 Consent: Patient was intubated early this morning, his ETT cuff is leaking so had to reintubate the patient using the bougie. A pre-procedural Time-Out was completed immediately before starting the procedure and confirmed: Patient Identification, Site, Procedure, Patient Position and the Availability of Requisite Equipment: Yes Sedative: none Laryngoscope: fiber optic video scope ET tube size: 7.5 Tube secured depth (cm): 25 Tube secured location: lips Tube placement confirmation: visualized tube passing through cords, equal breath sounds bilaterally, no breath sounds over epigastrium and confirmation by ca pnometry Patient tolerated procedure: well Intubation complications: none Additional comments: Chest x-ray did confirm placement of the ETT
--- NOTE | 2023-03-14 07:30 | PC.NURSE ---
Spoke with , (Marcy Reyes) and daughter (Hanna Marcum) at bedside regarding contact information. Marcy is in agreement to add Hanna to patient's file, and is allowing Hanna to obtain information on the patient.
[2023-03-14 07:34] LABS: Lactic Acid 12.8 mmol/L (0.7-2.0)
--- NOTE | 2023-03-14 07:51 | PC.NURSE ---
At 0430, Patient's heart rate elevated in the 140's-150's in sinus tachycardia and respiratory rate in the 30's. Dr. Pinzon notified and RN received orders to bolus Amiodarone and restart Amiodarone drip. At 0615, patient was having increased respiratory distress with a respiratory rate in the 40's-50 and an elevated heart rate as well. Patient demanding BiPap be taken off. RN notified Dr. Kim and received orders for IV Lasix and Lynch catheter insertion. Dr. Pinzon notified of change in patient status as well and received orders to intubate patient. Patient intubated at 0631. At 0655, it was noted that patient's cuff was not staying inflated on ETT. Dr. Pinzon made aware upon arrival and patient tube exchanged. Patient's vitals stable at this time. Will continue to monitor.
--- NOTE | 2023-03-14 08:25 | PM.IMPN ---
Progress Note: A&P Assessment and Plan (1) Respiratory failure: Code(s): J96.90 - Respiratory failure, unspecified, unspecified whether with hypoxia or hypercapnia Status: Acute Assessment and Plan: patient with continued and progressive respiratory failure with tachypnea and shortness of breath, intubated successfully by er physician -icu doctor on case, will defer for ventilator management -monitor abg -will need thrombolysis -unavailable here?- transfer to higher level care (2) Atrial fibrillation with rapid ventricular response: Code(s): I48.91 - Unspecified atrial fibrillation Status: Acute Assessment and Plan: patient with new diagnosis of atrial fibrillation, initially given diltiazem and supposedly converted to sinus rhythm, now tachycardic again, started on amiodarone drip due to initially soft blood pressures -likely due to underlying pulmonary embolism- question rv strain? -will need echo to evaluate lv function and check for thrombus -patient empirically starte don heparin drip- will need full thrombolysis- defer to icu physician (3) Pulmonary embolism: Code(s): I26.99 - Other pulmonary embolism without acute cor pulmonale Status: Acute Assessment and Plan: patient wiht new diagnosis of pulmonary embolism, unknown source and cause- no leg swelling -per has had dramatic drop in weight these past few weeks- concern for underlying malignancy? -patient now intubated, will need thrombolysis - continue ventilatory support Plan -monitor abg -?transfer to facility with thrombolysis? -discussed with -prognosis guarded Subjective Date/time seen: 03/14/23 08:25 Objective Data Vital Signs Vital Signs: Vital Signs - 24 hr 03/13/23 14:29 03/13/23 14:30 03/13/23 14:40 Temperature 98.2 F Pulse Rate 157 H Pulse Rate [Bilateral Pedal (Dorsalis Pedis) Palpation] Respiratory Rate 22 H Blood Pressure 94/82 L Pulse Oximetry 93 86 L 90 Oxygen Delivery Nasal Cannula Room Air Nasal Cannula Oxygen Flow Rate 4 2 Fraction of Inspired Oxygen 03/13/23 14:42 03/13/23 15:26 03/13/23 15:32 Temperature Pulse Rate 154 H 148 H Pulse Rate [Bilateral Pedal (Dorsalis Pedis) Palpation] Respiratory Rate 18 28 H Blood Pressure Pulse Oximetry 94 Oxygen Delivery Nasal Cannula Oxygen Flow Rate 4 Fraction of Inspired Oxygen 03/13/23 15:35 03/13/23 15:35 03/13/23 15:16 Temperature Pulse Rate 147 H 151 H Pulse Rate [Bilateral Pedal (Dorsalis Pedis) Palpation] Respiratory Rate 28 H Blood Pressure 95/66 L Pulse Oximetry 94 98 Oxygen Delivery Nasal Cannula Oxygen Flow Rate 4 Fraction of Inspired Oxygen 03/13/23 15:30 03/13/23 15:45 03/13/23 17:49 Temperature Pulse Rate 147 H 150 H 153 H Pulse Rate [Bilateral Pedal (Dorsalis Pedis) Palpation] Respiratory Rate 20 21 H Blood Pressure 100/74 92/63 L 110/78 Pulse Oximetry 100 98 Oxygen Delivery Oxygen Flow Rate Fraction of Inspired Oxygen 03/13/23 18:04 03/13/23 16:46 03/13/23 17:47 Temperature Pulse Rate 134 H 147 H 160 H Pulse Rate [Bilateral Pedal (Dorsalis Pedis) Palpation] Respiratory Rate 29 H 22 H Blood Pressure 99/74 L 106/84 110/78 Pulse Oximetry 98 98 Oxygen Delivery Oxygen Flow Rate Fraction of Inspired Oxygen 03/13/23 18:01 03/13/23 18:30 03/13/23 18:45 Temperature Pulse Rate 141 H 132 H Pulse Rate [Bilateral Pedal (Dorsalis Pedis) Palpation] Respiratory Rate 28 H 27 H Blood Pressure 99/74 L 98/67 L 100/79 Pulse Oximetry 95 99 100 Oxygen Delivery Oxygen Flow Rate Fraction of Inspired Oxygen 03/13/23 20:26 03/13/23 20:53 03/13/23 21:30 Temperature 98 F 99.1 F Pulse Rate 139 H 118 H Pulse Rate [Bilateral Pedal (Dorsalis Pedis) Palpation] Respiratory Rate 27 H 33 H Blood Pressure 82/68 L 109/70 Pulse Oximetry 100 96 98 Oxygen Delivery Nasal Cannula Oxygen Flow Rate 4
[2023-03-14] MEDS: PANTOPRAZOLE SODIUM IV 40 MG VIAL 80 MG IV PUSH (08:29)
[2023-03-14] MEDS: THIAMINE HCL 200 MG/2 ML VIAL 100 MG IV PUSH (08:30)
--- NOTE | 2023-03-14 08:30 | PC.NURSE ---
Dr. Pinzon at bedside discussing patient's plan of care with family. VORB to stop heparin drip, decrease propofol drip to 10mcg/kg/min, and to resume NS IVF at 100ml/hr
[2023-03-14] MEDS: SODIUM CHLORIDE 0.9% IV 500 ML IV CONT (08:40)
[2023-03-14 08:53] LABS: Alveolar/Arterial O2 Gradient 300.5 mmHg; Base Excess ABG -9.2 mEq/l (+/-2.0); Fractional Inspired Oxygen 100 %; HCO3 ABG 15.9 mEq/l (22.0-26.0); Oxygen Content ABG 10.6 %vol (16.0-22.0); Oxygen Saturation ABG 99.8 % (95.0-100.0); Oxyhemoglobin 97.8 % THb (90.0-100.0); PCO2 ABG 30.9 mmHg (35.0-45.0); PO2 ABG 381.6 mmHg (80.0-100.0); PO2 FiO2 Ratio Arterial Blood 3.82 %; pH ABG 7.329 (7.350-7.450)
[2023-03-14 08:56] LABS: Device VENTILATOR; Modified Allen's Test Pass; Site Drawn RIGHT RADIAL; Total Hemoglobin 6.9 g/dL (12.0-18.0)
[2023-03-14 08:57] LABS: Arterial Blood Gas PEEP 5 cmH2O; Arterial Blood Gas Tidal Volume 420 ml; Arterial Blood Gas Vent Mode CMV; Arterial Blood Gas Ventilator rate 20 /MIN
[2023-03-14 09:01] LABS: RSV RNA, RT-PCR Negative (Negative); SARS-CoV-2 RNA PCR Negative
--- NOTE | 2023-03-14 09:18 | P.PCNBED_ITS ---
Procedures Central Line Placement Left Femoral: Central Line Date: 03/14/23 Central Line Time: 09:18 Discussed w/ the patient/family/POA,the placement of a central venous catheter, including its clinical necessity/indication & associated potential risks, benifits and alternatives.: Yes The patient/family/POA understand(s) and acknowledge(s) the need to proceed with central venous catheter insertion as an important element of the patient's clinical management.: Yes Consent: I have discussed with the patient and/or surrogate, the non-emergent placement of a central venous catheter, including its clinical necessity/indication and associated potential risks and complications. The patient and/or surrogate understand(s) and acknowledge(s) the need to proceed with central venous catheter insertion as an important element of the patient's clinical management. Time Out Performed: Yes Patient Position: supine Patient placed on monitor/pulse ox: Yes Provider Prep: mask, sterile gown, sterile gloves, Max. sterile barrier precautions, cap and hand hygiene with conventional soap/water or alcohol based hand rub Central line prep: 2% Chlorhexidine scrub and sterile full body sheet applied Local anesthesia used: lidocaine 1% Amount of anesthesia used (ml): 3 Sterile US Technique with sterile gel/sterile probe covers: Yes Central line lumen inserted: triple Marshallese: 12 Length (cm): 16 Depth of Insertion (cm): 16 Post Procedure: sutured in place, good blood return, all ports aspirated, flushed, capped, transparent dressing, hemostatic product, antimicrobial product and securement product Post procedure x-ray: other (Not indicated) Patient tolerated procedure: well Complications: none
--- NOTE | 2023-03-14 09:20 | WPDCNINT ---
Assessment and Plan Assessment and plan (1) Respiratory failure: Code(s): J96.90 - Respiratory failure, unspecified, unspecified whether with hypoxia or hypercapnia Status: Acute Assessment and Plan: Patient presented with increasing shortness of breath, while in the ICU required increased amount of oxygenation and was getting tachypneic and tired so was intubated in the early hours on 03/14/2023 -etiology multifactorial: Pulmonary embolism, possible pneumonia, anemia, severe acidosis, COPD -currently on CMV mode of ventilation, peep of 5, FiO2 of 60%, wean FiO2 to maintain O2 sats greater than 92% -patient started antibiotics, on cefepime, vancomycin and doxycycline (03/14) -will start patient on bronchodilators -sedated with propofol, maintain RASS of 0 to -1, daily spontaneous awakening trial and SBT Chest x-ray and ABGs reviewed, ventilator adjusted -03/13/2023: CTA chest: Pulmonary embolism involving right upper and lower lobe segmental and subsegmental pulmonary arteries, small thrombus burden. 2: Focal groundglass opacities right upper and middle lobes, most likely infectious/inflammatory. 3:? Hepatic steatosis. (2) Pulmonary embolism: Code(s): I26.99 - Other pulmonary embolism without acute cor pulmonale Status: Acute Assessment and Plan: Pulmonary embolism as above -started on heparin infusion -patient now has increased coffee-ground drainage from his OG tube -hemoglobin level dropped from 11.5 on admission to 7.8 this morning -will hold heparin infusion for now -check lower extremity Dopplers evaluate for DVTs -echocardiogram to evaluate right heart strain (3) Anemia: Code(s): D64.9 - Anemia, unspecified Status: Acute Assessment and Plan: Severe anemia, patient dropped his hemoglobin from 11.5-7.8 this morning -etiology could be variceal bleeding since patient is a known alcoholic, possible peptic ulcer disease, stress ulcers -started patient on Protonix and octreotide infusion -will transfuse 1 unit of packed RBCs -discussed with GI, agree with Protonix and octreotide infusion, GI also agrees with stopping heparin for now, likely EGD today (4) Elevated liver enzymes: Code(s): R74.8 - Abnormal levels of other serum enzymes Status: Acute Assessment and Plan: Elevated liver enzymes could be related to alcoholic hepatitis -hepatitis discriminant function is 42 point, >32 shows poor prognosis and may benefit from glucocorticoids -will discuss with GI regarding glucocorticoids as patient also has has upper GI bleed (5) Alcohol abuse, daily use: Code(s): F10.10 - Alcohol abuse, uncomplicated Status: Acute Assessment and Plan: Daily alcohol abuse, patient drinks 3/4 gal of vodka daily (6) Lactic acidosis: Code(s): E87.20 - Acidosis, unspecified Status: Acute Assessment and Plan: Patient's lactic acid was elevated initially to 6.6, increased to 11.8, dropped to 5.9 and this morning is 12.8 -given IV fluid bolus -will also be given 1 unit of packed RBCs -multifactorial could be related to decreased tissue perfusion, decreased liver metabolism -continue to monitor -nephrology has been consulted Plan DVT prophylaxis: Heparin infusion which is currently on hold Stress ulcer prophylaxis: Protonix infusion and octreotide Nutrition: NPO Called [facility] for patient transfer, he has been accepted, was they allocate a bed patient be transferred to [facility] Code Status: Full code Critical Care Time Spent: 59 minutes Due to a high probability of clinically significant, life threatening deterioration, the patient required my highest level of preparedness to intervene emergently and I personally spent this critical care time directly and personally managing the patient. This critical care time included obtaining a history; examining the patient; pulse oximetry; ordering and review of studies; arranging urgent treatment w
[2023-03-14] MEDS: PANTOPRAZOLE SODIUM IV 80 MG in SODIUM CHLORIDE 0.9% IV 500 ML 50 MG IV CONT (09:49)
[2023-03-14] MEDS: CEFEPIME 1 GM/NS 50 ML 1 GM/50 ML BAG IVPB (09:50)
[2023-03-14] MEDS: FOLIC ACID 1 MG/0.2 ML INJ IV PUSH (09:51)
[2023-03-14] MEDS: DOXYCYCLINE 100 MG/NS 100 ML 100 MG/100 ML BAG IVPB (10:08)
[2023-03-14] MEDS: AMIODARONE 360 MG/D5W 200 ML 360 MG/200 ML BAG 16.67 MG IV CONT (10:50)
[2023-03-14] MEDS: SODIUM CHLORIDE 0.9% IV 250 ML 30 ML IV CONT (11:03)
--- NOTE | 2023-03-14 11:29 | WPDGICN ---
Assessment and Plan Assessment and plan (1) Gastrointestinal bleeding: Code(s): K92.2 - Gastrointestinal hemorrhage, unspecified Status: Acute Assessment and Plan: when NG was placed after he was intubated because of his respiratory distress, dark blood was returned, coffee-ground material but will a couple of 100 cc. However his hemoglobin did drop from 10.9-7.8. Was 13 in August last year per (2) Pulmonary embolism: Code(s): I26.99 - Other pulmonary embolism without acute cor pulmonale Status: Acute Assessment and Plan: CT scan suggests pulmonary embolism. He had been anticoagulated with heparin but because the bleeding it has been held On CT there was a small thrombus burden and embolism involving the right upper and lower lobes segmentally. (3) Anemia: Code(s): D64.9 - Anemia, unspecified Status: Acute Assessment and Plan: cause of anemia suspected to be gastrointestinal bleed (4) Alcohol abuse, daily use: Code(s): F10.10 - Alcohol abuse, uncomplicated Status: Acute Assessment and Plan: is unknown how much she drinks every day. (5) Hepatic steatosis: Code(s): K76.0 - Fatty (change of) liver, not elsewhere classified Status: Acute Assessment and Plan: CT shows hepatic steatosis. (6) Lactic acidosis: Code(s): E87.20 - Acidosis, unspecified Status: Acute Assessment and Plan: Initial lactic acid was 6.9, now it is over 12. (7) Elevated liver enzymes: Code(s): R74.8 - Abnormal levels of other serum enzymes Status: Acute Assessment and Plan: The enzyme elevation is not high enough to suggest ischemic hepatopathy. However his bilirubin has been increasing from 1.1 last year to 6.0 yesterday. Note is 4.8 this morning Plan I discussed his situation with the cryogenic transport driver. The plan is to perform EGD. Heparin has been held. I suspect he may have esophageal varices. However a transfer to [place] to a tertiary center is pending. GI Consult Note Consult date/time: 03/14/23 11:29 HPI: Edmond Reyes is a 57 year old male who is known to be a chronic abuser of alcohol and tobacco who also has COPD. He came to emergency room yesterday because of increasing shortness of breath fatigue and losing weight. Apparently lost 15 lb over the last 6 months. He had a CTA that showed a pulmonary embolism in the right upper and lower lobes. He has subsequently developed respiratory distress and was intubated. He had been started on heparin but it was noted that he had blood in his NG tube, and his hemoglobin has dropped from it 10.9-7.8. He had been started on heparin. This has been held because of the apparent bleeding. He is also on antibiotics for pneumonia. He has had elevated liver enzymes with a bilirubin of 4.[address] scan of the abdomen was done that showed multiple rib fractures and prominent hepatic steatosis. [facility], [facility] Past Medical History Medical History Alcohol abuse, daily use Hepatic steatosis Tobacco dependence Surgical History Surgical History History of open reduction and internal fixation (ORIF) procedure Repair right 3rd finger fracture. Family History Family History Other Family history non-contributory Social History Social History Social History: Surrogate medical decision maker: Code status: Full code. Smoking packs per day: 1 Smoking cigarettes per day: 20.0 Years smoked: 20 Smoking pack-years: 20.00 Smoking status: Current every day smoker Alcohol intake: current Drinks per week: 21 Substance use: never Lack of Transportation: No Lack of Food: Never True Current Housing: I Have Housing Concerned About Fu
[2023-03-14] MEDS: PERFLUTREN LIPID MICROSPHERES 1.5 ML VIAL DILUTED TO 10 ML TOTAL VOLUME IV PUSH (11:45)
--- NOTE | 2023-03-14 12:03 | P.CONNP_ITS ---
Assessment and Plan Assessment and plan (1) Lactic acidosis: Code(s): E87.20 - Acidosis, unspecified Status: Acute Assessment and Plan: * lactic acid 6.6 on presentation * increased to 11.8 * dropped to 5.9 * up again this AM at 12.8 * s/p aggressive IVF resuscitation * suspect related to decrease tissue perfusion in the context of liver disease as suspected GI bleed * follow trend of repeat lactic acid levels * may need further imaging (r/o bowel ischemia) (2) Respiratory failure: Code(s): J96.90 - Respiratory failure, unspecified, unspecified whether with hypoxia or hypercapnia Status: Acute Assessment and Plan: * multifactorial etiology: * pulmonary embolus * possible pneumonia * acidosis * underlying COPD * anemia (?) * intubated earlier today * continue ventilator management * follow culture data * empiric antibiotics * continue supportive therapy (3) Pulmonary embolism: Code(s): I26.99 - Other pulmonary embolism without acute cor pulmonale Status: Acute Assessment and Plan: * as noted by admission CTA of chest * initiated on heparin infusion * however given #4 and concern for GI bleed, heparin on hold * follow-up on LE dopplers and Echo (4) Anemia: Code(s): D64.9 - Anemia, unspecified Status: Acute Assessment and Plan: * drop in H/H noted by AM labs * associated with coffee ground emesis/material noted from OG tube * heparin on hold * on IV protonix and octreotide infusions * given known history, concern is for possible varices, PUD, and/or stress ulcers * PRBC transfusion per protocol * possible EGD today (5) Elevated liver enzymes: Code(s): R74.8 - Abnormal levels of other serum enzymes Status: Acute Assessment and Plan: * noted on admission * imaging with hepatic steatosis * due to alcohol versus general liver cirrhosis * associated with elevated INR as well * follow trend of labs * Gastroenterolgy following (6) Alcohol abuse, daily use: Code(s): F10.10 - Alcohol abuse, uncomplicated Status: Acute Assessment and Plan: * follow for withdrawal symptoms I will continue to follow the patient with you while he remains hospitalized and make further recommendations during his hospital course Thank you for allowing me to participate in the care of this patient. History of Present Illness Reason for Consult Consult date: 03/14/23 Reason for consult: Other (lactic acidosis) Chief Complaint Chief complaint: A Fib with RVR/Hypokalemia/Elevated LFTs History of Present Illness Narrative: All the information I have obtained is from review of electronic medical records as well as discussion with the physician/nurses involved in the patient's care as the patient is unable to provide any history as he is currently intubated and on mechanical ventilation. The patient is a 57-year-old male with a past medical history as ou tlined below who presented to [facility] Emergency Room with complaints of shortness of breath and generalized weakness. Apparently, at baseline, the patient is mainly sedentary at home with his major source of nutrition being that of alcohol although apparently there was a report that his appetite has been somewhat diminished in the last few weeks. In spite of his generalized deconditioning due to his sedentary status, he is able to ambulate enough to go to the store and buy more alcohol. However, at baseline, he is quite unstable on his feet a
--- NOTE | 2023-03-14 12:03 | PM.CNNEP ---
Assessment and Plan Assessment and plan (1) Lactic acidosis: Code(s): E87.20 - Acidosis, unspecified Status: Acute Assessment and Plan: lactic acid 6.6 on presentation increased to 11.8 dropped to 5.9 up again this AM at 12.8 s/p aggressive IVF resuscitation suspect related to decrease tissue perfusion in the context of liver disease as suspected GI bleed follow trend of repeat lactic acid levels may need further imaging (r/o bowel ischemia) (2) Respiratory failure: Code(s): J96.90 - Respiratory failure, unspecified, unspecified whether with hypoxia or hypercapnia Status: Acute Assessment and Plan: multifactorial etiology: pulmonary embolus possible pneumonia acidosis underlying COPD anemia (?) intubated earlier today continue ventilator management follow culture data empiric antibiotics continue supportive therapy (3) Pulmonary embolism: Code(s): I26.99 - Other pulmonary embolism without acute cor pulmonale Status: Acute Assessment and Plan: as noted by admission CTA of chest initiated on heparin infusion however given #4 and concern for GI bleed, heparin on hold follow-up on LE dopplers and Echo (4) Anemia: Code(s): D64.9 - Anemia, unspecified Status: Acute Assessment and Plan: drop in H/H noted by AM labs associated with coffee ground emesis/material noted from OG tube heparin on hold on IV protonix and octreotide infusions given known history, concern is for possible varices, PUD, and/or stress ulcers PRBC transfusion per protocol possible EGD today (5) Elevated liver enzymes: Code(s): R74.8 - Abnormal levels of other serum enzymes Status: Acute Assessment and Plan: noted on admission imaging with hepatic steatosis due to alcohol versus general liver cirrhosis associated with elevated INR as well follow trend of labs Gastroenterolgy following (6) Alcohol abuse, daily use: Code(s): F10.10 - Alcohol abuse, uncomplicated Status: Acute Assessment and Plan: follow for withdrawal symptoms I will continue to follow the patient with you while he remains hospitalized and make further recommendations during his hospital course Thank you for allowing me to participate in the care of this patient. History of Present Illness Reason for Consult Consult date: 03/14/23 Reason for consult: Other (lactic acidosis) Chief Complaint Chief complaint: A Fib with RVR/Hypokalemia/Elevated LFTs History of Present Illness Narrative: All the information I have obtained is from review of electronic medical records as well as discussion with the physician/nurses involved in the patient's care as the patient is unable to provide any history as he is currently intubated and on mechanical ventilation. The patient is a 57-year-old male with a past medical history as outlined below who presented to [facility] Emergency Room with complaints of shortness of breath and generalized weakness. Apparently, at baseline, the patient is mainly sedentary at home with his major source of nutrition being that of alcohol although apparently there was a report that his appetite has been somewhat diminished in the last few weeks. In spite of his generalized deconditioning due to his sedentary status, he is able to ambulate enough to go to the store and buy more alcohol. However, at baseline, he is quite unstable on his feet and apparently has had several falls over the last few weeks as well. Further complicating matters is that he has lost a significant amount of weight over last 6 months due to poor nutritional intake and poor appetite as mentioned already.On the day of presentation, the patient reported increased shortness of breath which is somewhat of a new symptom. As a progressively seem to get worse over the course the day, he presented to the emergency room for further
[2023-03-14 12:52] LABS: Hematocrit 24.9 % (42.0-52.0); Hemoglobin 8.6 g/dL (14.0-18.0)
[2023-03-14 13:02] LABS: Glucose Point of Care 259 mg/dl (65-105)
[2023-03-14] MEDS: NOREPINEPHRINE 8 MG/D5W 250 ML 8 MG/250 ML BAG 18.75 MG IV CONT (14:51)
--- NOTE | 2023-03-14 14:51 | PM.TDS ---
Transfer Discharge Sum: Prov Provider Date of admission: 03/14/23 10:25 Primary care physician: RADIO ANTENNA INSTALLER PHYSICIAN Admitting clinician: Erica Paz MD Consults: 03/13/23 Consult to Physician Routine Comment: Consulting Provider: Murali Pinzon housecalls nurse/MD group to consult: Dr. Pinzon Reason for consultation: PE, lactic acidosis, Has provider been notified: Yes 03/13/23 19:47 Consult to Dietitian Routine Reason for Consult:: Protein calorie malnutrition, alcohol abuse 03/14/23 08:06 Consult to Physician Routine Comment: spoke with Ivette in the GI Lab @0815(ER,US) Consulting Provider: Emil Fuentes housecalls nurse/MD group to consult: GI -gastroenterology Reason for consultation: Coffee-ground NG drainage Has provider been notified: Yes 03/14/23 08:07 Consult to Physician Routine Comment: spoke with Dr. Golden@0814(ER,US) Consulting Provider: Herminio Golden housecalls nurse/MD group to consult: Nephrology Reason for consultation: Significantly elevated lactic acid Has provider been notified: Yes DS: Admitting Diagnosis Discharge Date 03/14/2023 Admitting Diagnosis Shortness of breath DS: Discharge Diagnosis Discharge Diagnosis (1) Respiratory failure: Code(s): J96.90 - Respiratory failure, unspecified, unspecified whether with hypoxia or hypercapnia Status: Acute Assessment and Plan: Patient presented with increasing shortness of breath, while in the ICU required increased amount of oxygenation and was getting tachypneic and tired so was intubated in the early hours on 03/14/2023 -etiology multifactorial: Pulmonary embolism, possible pneumonia, anemia, severe acidosis, COPD -currently on CMV mode of ventilation, peep of 5, FiO2 of 60%, wean FiO2 to maintain O2 sats greater than 92% -patient started antibiotics, on cefepime, vancomycin and doxycycline (03/14) -will start patient on bronchodilators -sedated with propofol, maintain RASS of 0 to -1, daily spontaneous awakening trial and SBT Chest x-ray and ABGs reviewed, ventilator adjusted -03/13/2023: CTA chest: Pulmonary embolism involving right upper and lower lobe segmental and subsegmental pulmonary arteries, small thrombus burden. 2: Focal groundglass opacities right upper and middle lobes, most likely infectious/inflammatory. 3:? Hepatic steatosis. (2) Pulmonary embolism: Code(s): I26.99 - Other pulmonary embolism without acute cor pulmonale Status: Acute Assessment and Plan: Pulmonary embolism as above -started on heparin infusion -patient now has increased coffee-ground drainage from his OG tube -hemoglobin level dropped from 11.5 on admission to 7.8 this morning -will hold heparin infusion for now -check lower extremity Dopplers evaluate for DVTs -echocardiogram to evaluate right heart strain (3) Anemia: Code(s): D64.9 - Anemia, unspecified Status: Acute Assessment and Plan: Severe anemia, patient dropped his hemoglobin from 11.5-7.8 this morning -etiology could be variceal bleeding since patient is a known alcoholic, possible peptic ulcer disease, stress ulcers -started patient on Protonix and octreotide infusion -will transfuse 1 unit of packed RBCs -discussed with GI, agree with Protonix and octreotide infusion, GI also agrees with stopping heparin for now, likely EGD today (4) Elevated liver enzymes: Code(s): R74.8 - Abnormal levels of other serum enzymes Status: Acute Assessment and Plan: Elevated liver enzymes could be related to alcoholic hepatitis -hepatitis discriminant function is 42 point, >32 shows poor prognosis and may benefit from glucocorticoids -will discuss with GI regarding glucocorticoids as patient also has has upper GI bleed (5) Alcohol abuse, daily use: Code(s): F10.10 - Alcohol abuse, uncomplicated Status: Acute Assessment and Plan: Daily alcohol abuse, patient drinks 3/4 gal of vodka daily (6) Lacti
--- NOTE | 2023-03-14 14:57 | PC.NURSE ---
Pt transferred Anusha Tierney via [facility] to [id number]. Report called to NOHEMY Mercado @ [id number]. Pt sent with Propofol, Levophed, Amiodarone, Octreotide, and Protonix infusions. Family at bedside. Belongings sent with , Marcy.
--- NOTE | 2023-03-14 17:39 | ECHO_ITS ---
Patient Info Name: Edmond Reyes Age: 57 years : 1965 Gender: Male Ht: 67 in Wt: 130 lbs BSA: 1.67 m2 HR: 103 bpm BP: 147 / 111 mmHg Heart Rhythm: Tachycardia Technical Quality: Poor Exam Date: 03/14/2023 11:21 AM Exam Location: [facility] Pulmonary Exam Room: ICU3 Patient Status: Inpatient Admit Date: 03/14/2023 Staff Ordering Physician: Halle Ochoa PA-C [employer] Instructor: Venessa Rodas RDCS Attending Provider: Erica Paz MD Referring Physician: Don HANSEN; Exam Type: CA echo dop color flow w con Study Info Indications - ATRIAL FIB /FLUTTER Complete two-dimensional, color flow and Doppler transthoracic echocardiogram is performed with contrast to opacify the left ventricle and to improve the deliniation of the left ventricle endocardial borders. Contrast/Agitated Saline Contrast/Ag. Saline: Definity Amount: 2.00 ml Administered By: Venessa Rodas [facility] Existing IV Access: Yes IV Access Condition: patent with no signs of infiltration Reason for Poor Study: patient body habitus Summary 1. Technically difficult study with limited views. 2. Left ventricular chamber dimension is normal. 3. Left ventricular systolic function is mildly reduced, estimated at 40-45%. Of note, patient is tachycardic during this study. 4. The left ventricular diastolic function is grade I diastolic dysfunction. 5. Right ventricular chamber dimension is not well visualized. 6. There is mild tricuspid valve regurgitation. 7. There is small anterior pericardial effusion. Left Ventricle Left ventricular chamber dimension is normal. Left ventricular systolic function is mildly reduced, estimated at 40-45%. Of note, patient is tachycardic during this study. The left ventricular diastolic function is grade I diastolic dysfunction. Right Ventricle Right ventricular chamber dimension is not well visualized. Left Atria Left atrial chamber dimension is normal. Right Atria Right atrial chamber dimension is normal. Aortic Valve The aortic valve is not well visualized. There is no aortic valve stenosis. There is no aortic valve regurgitation. Pulmonic Valve The pulmonic valve is not well visualized. Mitral Valve There is trace mitral valve regurgitation. Tricuspid Valve There is mild tricuspid valve regurgitation. Pericardium/Pleural There is small anterior pericardial effusion. Inferior Vena Cava Inferior vena cava is not well visualized. Aorta The aortic root size at the sinus of Valsalva is normal. Left Ventricular Outflow Tract Name Value Normal LVOT 2D LVOT Diameter 2.00 cm LVOT Doppler LVOT Peak Gradient 4 mmHg LVOT Mean Gradient 3 mmHg LVOT VTI 18.61 cm LVOT VTI/AV VTI Ratio 1.30 LVOT Stroke Volume 58.59 ml LVOT CO 15.02 l/min LVOT CI 9.02 L/min/m2 Pulmonic Valve
[2023-03-15 06:59] LABS: Influenza A QL RT-PCR Negative (Negative); Influenza B QL RT-PCR Negative (Negative)
[2023-03-17 19:03] LABS: Pneumococcal Antigen Urine Not Detected (Not Detected)
[2023-03-17 20:19] LABS: Mycoplasma IgM Antibody Titer 371 U/mL (<770)
[2023-03-19 04:29] LABS: Legionella pneumophila Ag Ur Not Detected (Not Detected)
== END 2023-03-14 15:00 | disposition short-term general hospital (02) | DRG 208 ==
LOC: ANHED 18:44 → ANHICU 20:01
PROVIDERS: Emergency Medicine; Internal Medicine; Physician Assistant; Admitting Provider Family Medicine; Emergency Provider Emergency Medicine; Visit Provider Student in an Organized Health Care Education/Training Program
DX: I26.99 Other pulmonary embolism without acute cor pulmonale (principal); J18.9 Pneumonia, unspecified organism; J96.01 Acute respiratory failure with hypoxia; S22.41XA Multiple fractures of ribs, right side, initial encounter for closed fracture; E87.20 Acidosis, unspecified; J44.1 Chronic obstructive pulmonary disease with (acute) exacerbation; E46 Unspecified protein-calorie malnutrition; Z68.1 Body mass index [BMI] 19.9 or less, adult; J44.0 Chronic obstructive pulmonary disease with (acute) lower respiratory infection; E87.1 Hypo-osmolality and hyponatremia; I48.91 Unspecified atrial fibrillation; E87.6 Hypokalemia; M19.90 Unspecified osteoarthritis, unspecified site; F17.210 Nicotine dependence, cigarettes, uncomplicated; D53.9 Nutritional anemia, unspecified; K76.0 Fatty (change of) liver, not elsewhere classified; F10.10 Alcohol abuse, uncomplicated; E83.42 Hypomagnesemia; R91.8 Other nonspecific abnormal finding of lung field; X58.XXXA Exposure to other specified factors, initial encounter; R29.6 Repeated falls; R74.01 Elevation of levels of liver transaminase levels; E86.0 Dehydration; K70.10 Alcoholic hepatitis without ascites
CPT/HCPCS: 31500; 36415; 36430; 36600; 71045; 71275; 74177; 76705; 80048; 80053; 80074; 80307; 81003; 82375; 82550; 82607; 82728; 82746; 82805; 82948; 83050; 83540; 83550; 83605; 83615; 83735; 83880; 84443; 84478; 84484; 85014; 85018; 85025; 85046; 85610; 85730; 86738; 86850; 86900; 86901; 86923; 87040; 87070; 87081; 87086; 87147; 87181; 87186; 87205; 87449; 87502; 87634; 87899; 93005; 93922; 93970; 94002; 94640; 96361; 96365; 96366; 96367; 96368; 96375; 96376; 99285; A9270; C1751; C8929; C9113; G0378; J0282; J0692; J0696; J1644; J1940; J2060; J2354; J2704; J3010; J3370; J3411; J3475; J3480; J7030; J7040; J7050; P9016; Q9957; Q9967; U0003; U0005